=== PATIENT | male | born 1950 ===

== ENCOUNTER 2018-09-17 13:59 | Emergency (ER) | payer MEDICARE, OTHER ==
[2018-09-17 14:10] VITALS: BP 163/68; TEMP 97.7; O2SAT 100
[2018-09-17 14:34] VITALS: PULSE 78; RESP 20
--- NOTE | 2018-09-17 15:08 | C.PDOC ---
History Of Present Illness 68-year-old male, presents to the emergency department with complaints of pain to his left second finger. Patient tripped and fell, and jammed his finger when he landed. Patient denies any numbness/weakness, other injuries. Time Seen by Provider: 09/17/18 14:22 Chief Complaint (Nursing): Finger,Hand,&Wrist History Per: Patient History/Exam Limitations: no limitations Past Medical History Reviewed: Historical Data, Nursing Documentation, Vital Signs Vital Signs: Last Vital Signs Temp 97.7 F 09/17/18 14:05 Pulse 78 09/17/18 14:05 Resp 20 09/17/18 14:05 BP 163/68 H 09/17/18 14:05 Pulse Ox 100 09/17/18 14:05 - Medical History PMH: Arthritis, HTN, Hypercholesterolemia Denies: Chronic Kidney Disease - [facility] OTHER CAST APPLICATION (06/17/14) Family History: States: No Known Family Hx - Social History Hx Tobacco Use: No Hx Alcohol Use: No Hx Substance Use: No - Immunization History Hx Tetanus Toxoid Vaccination: Yes (4 years ago) Hx Influenza Vaccination: Yes Hx Pneumococcal Vaccination: No Review Of Systems Constitutional: Negative for: Fever Respiratory: Negative for: Shortness of Breath Gastrointestinal: Negative for: Nausea, Vomiting Musculoskeletal: Positive for: Hand Pain (left second finger pain/injury) Neurological: Negative for: Weakness, Numbness Physical Exam - Physical Exam Appears: Non-toxic, No Acute Distress Skin: Warm, Dry Eye(s): bilateral: Normal Inspection Nose: Normal Oral Mucosa: Moist Lips: Normal Appearing Neck: Normal ROM Extremity: Capillary Refill (<2 seconds), Other (left hand second digit, knuckle prominent, swollen, deformed, +puncture wound on PIP joint. ) Pulses: Left Radial: Normal, Right Radial: Normal Neurological/Psych: Oriented x3, Normal Speech ED Course And Treatment O2 Sat by Pulse Oximetry: 100 Medical Decision Making Medical Decision Making: s/pfall with jammed finger, xray shows dislocation. finger numbed with 5ml 1 % lidocaine in digital block and manually reduced. wound care done, bacitracin and splint applied, and pt sent for post reduction films. 1649 post reduction films reviewed; splint applied toleft second finger. d/c home with hand f/u Disposition Counseled Patient/Family Regarding: Studies Performed, Diagnosis, Need For Followup, Rx Given - Disposition Referrals: Naldo Ham MD [Staff Provider] - Disposition: HOME/ ROUTINE Disposition Time: 16:55 Condition: IMPROVED Additional Instructions: Wear splint on left second finger- remove to bathe and re-apply. FOllow up wiht Dr Ham- hand surgeon. Call for appointment. Tylenol or Motrin for pain. Prescriptions: Acetaminophen [Tylenol 325mg tab] 650 mg PO Q6 #30 tab Instructions: Finger Dislocation (DC) Forms: [facility] (K[place]akh), General Discharge Instructions - Clinical Impression Clinical Impression: Dislocation of finger, left, closed - Scribe Statement The provider has reviewed the documentation as recorded by the Scribe (Víctor Tyler) All medical record entries made by the Scribe were at my direction and p ersonally dictated by me. I have reviewed the chart and agree that the record accurately reflects my personal performance of the history, physical exam, medical decision making, and the department course for this patient. I have also personally directed, reviewed, and agree with the discharge instructions and disposition.
[2018-09-17] MEDS ORDERED: Lidocaine Hydrochloride 5 ML INJ ONE (15:41)
--- NOTE | 2018-09-17 15:59 | RAD ---
Date of service: 09/17/2018 PROCEDURE: Left Index finger radiographs. HISTORY: fell, jammed finger, eval for disloc/fx COMPARISON: None. TECHNIQUE: AP radiograph of the left hand, as well as spot oblique and lateral images of index finger were obtained. FINDINGS: LEFT INDEX FINGER: There is dorsal dislocation of the middle phalanx with respect to the proximal phalanx 2nd digit. No obvious acute displaced fracture... Very tiny- punctate corticated bony densities within the ulnar soft tissues at the level of the DIP joint and distal aspect proximal phalanx 2nd finger. Findings probably represent small posttraumatic mineralization. There appears to be mild circumferential soft tissue swelling at the level of the proximal phalanx 2nd digit. Of note also made of some minimal irregularity along the cortex of the of the base of the dorsal aspect distal phalanx 1st digit. JOINTS: Normal. SOFT TISSUES: Normal. OTHER FINDINGS: None. IMPRESSION: There is dorsal dislocation of the middle phalanx with respect to the proximal phalanx 2nd digit. No obvious acute displaced fracture... Very tiny- punctate corticated bony densities within the ulnar soft tissues at the level of the DIP joint and distal aspect proximal phalanx 2nd finger. Findings probably represent small posttraumatic mineralization. There appears to be mild circumferential soft tissue swelling at the level of the proximal phalanx 2nd digit. The
[2018-09-17] MEDS ORDERED: Bacitracin 500 Units/gm Oint Foilpak UD TOP ONE (16:14)
[2018-09-17] MEDS ORDERED: Bacitracin 500 Units/gm Oint Foilpak UD ONE (16:16)
--- NOTE | 2018-09-17 17:56 | RAD ---
Date of service: 09/17/2018 PROCEDURE: Left Index finger radiographs. HISTORY: post reduction COMPARISON: September 17, 2018 pre reduction radiographs performed 15:25 TECHNIQUE: AP radiograph of the left hand, as well as spot oblique and lateral images of index finger were obtained. FINDINGS: LEFT INDEX FINGER: Anatomic alignment at the site of dislocation proximal interphalangeal joint. Associated avulsion fracture best seen on the lateral view and marked on the study. Remainder of the left hand (as seen on the AP view) grossly intact. JOINTS: Normal. SOFT TISSUES: Normal. OTHER FINDINGS: None. IMPRESSION: Anatomic reduction of 2nd digit dislocation. Avulsion fracture at the base of the middle phalanx left index finger.
== END 2018-09-17 17:00 | disposition home or self-care (01) ==
LOC: C.ER 13:59
DX: S63.281A Dislocation of proximal interphalangeal joint of left index finger, initial encounter (principal); W01.0XXA Fall on same level from slipping, tripping and stumbling without subsequent striking against object, initial encounter

== ENCOUNTER 2018-11-26 13:31 | Outpatient (CLI) | payer MEDICARE, OTHER | END 2018-11-26 13:32 | disposition home or self-care (01) | LOC: C.RADIC 13:31 | DX: M25.552 Pain in left hip (principal); M25.572 Pain in left ankle and joints of left foot; M79.2 Neuralgia and neuritis, unspecified ==

== ENCOUNTER 2019-01-25 13:37 | Outpatient (CLI) | payer MEDICARE, OTHER | END 2019-01-25 13:38 | disposition home or self-care (01) | LOC: C.MRIC 13:38 | DX: M25.559 Pain in unspecified hip (principal) ==